=== PATIENT | female | born 1930 | race Caucasian/White ===

== ENCOUNTER 2017-11-02 20:32 | Emergency (ER) | payer MEDICARE ==
[2017-11-02 21:36] LABS: URINE BLOOD (Dip) POC Negative (NEGATIVE); URINE GLUCOSE (Dip) POC Negative (NEGATIVE); URINE KETONES (Dip) POC Negative (NEGATIVE); URINE LEUKOCYTE EST (Dip) POC Negative (NEGATIVE); URINE NITRITE (Dip) POC Negative (NEGATIVE); URINE TOTAL PROTEIN POC Negative (NEGATIVE)
== END 2017-11-02 22:30 | disposition home or self-care (01) ==
LOC: FTE 20:32
DX: M25.561 Pain in right knee (principal); R32 Unspecified urinary incontinence; E11.9 Type 2 diabetes mellitus without complications; Z79.82 Long term (current) use of aspirin
CPT/HCPCS: 81003; 99282

== ENCOUNTER 2018-05-07 18:02 | Emergency (ER) | payer MEDICARE ==
[2018-05-07 21:35] LABS: ADD UMIC YES; UR ASCORBIC ACID 20 mg/dL (NEGATIVE); UR BILIRUBIN (Dip) NEGATIVE (NEGATIVE); UR BLOOD (Dip) 1+ mg/dL (NEGATIVE); UR CLARITY CLEAR (CLEAR); UR COLOR YELLOW (YELLOW); UR GLUCOSE (Dip) NEGATIVE (NEGATIVE); UR KETONES (Dip) NEGATIVE (NEGATIVE); UR LEUKOCYTE ESTERASE (Dip) NEGATIVE Leu/ul (NEGATIVE); UR NITRITE (Dip) NEGATIVE (NEGATIVE); UR RBC 1 /HPF (0-5); UR TOTAL PROTEIN (Dip) NEGATIVE (NEGATIVE); UR UROBILINOGEN (Dip) NEGATIVE (NEGATIVE); UR WBC 1 /HPF (0-5)
== END 2018-05-08 15:00 | disposition home or self-care (01) ==
LOC: E/R 05-08 15:00
DX: L98.9 Disorder of the skin and subcutaneous tissue, unspecified (principal); I10 Essential (primary) hypertension; E11.9 Type 2 diabetes mellitus without complications; R23.3 Spontaneous ecchymoses; Z79.82 Long term (current) use of aspirin
CPT/HCPCS: 81001; 99283